=== PATIENT | female | born 1990 | race Caucasian/White ===

== ENCOUNTER 2020-12-13 21:16 | Emergency (ER) | payer OTHER ==
[2020-12-13 21:35] VITALS: BP 111/80; PULSE 85; TEMP 97.9; BMI 29.2
[2020-12-13] MEDS ORDERED: IBUPROFEN 600 MG TABLET (FP) PO ONE ×2 (22:38→22:49)
[2020-12-13] MEDS ORDERED: DEXAMETHASONE LIQUID 0.5 MG/5 ML PO ONE (22:38)
[2020-12-13] MEDS ORDERED: DEXAMETHASONE SOD PHOSPHATE 10 MG/1 ML VIAL ONE (22:41)
== END 2020-12-13 23:09 | disposition home or self-care (01) ==
LOC: JERFT 21:16
DX: J06.9 Acute upper respiratory infection, unspecified (principal); Z11.52 Encounter for screening for COVID-19
CPT/HCPCS: 71045-TC-FY; 99284-25; C9803; U0003; U0005

== ENCOUNTER 2020-12-24 23:31 | Emergency (ER) | payer OTHER ==
[2020-12-25 00:33] VITALS: BP 112/74; PULSE 74; TEMP 97.7; BMI 30.6
[2020-12-25] MEDS ORDERED: ACETAMINOPHEN 325 MG TABLET (FP) PO ONE (02:34)
[2020-12-25] MEDS ORDERED: ACETAMINOPHEN 325 MG TABLET (FP) ONE (02:39)
[2020-12-25 03:09] LABS: BASO % 0.2 % (0-2.0); EOS % 2.3 % (0-4.5); HEMATOCRIT 41.3 % (32.4-45.2); HEMOGLOBIN 14.1 GM/dL (10.7-15.3); LYMPH % 33.5 % (8-40); MCH 29.6 pg (25.7-33.7); MCHC 34.2 g/dl (32.0-36.0); MEAN CELL VOLUME 86.4 fl (80-96); MEAN PLT VOLUME 8.8 fl (7.5-11.1); MONO % 7.9 % (3.8-10.2); NEUT % 56.1 % (42.8-82.8); PLATELET COUNT 259 10^3/uL (134-434); RBC 4.78 M/mm3 (3.60-5.2); RDW 13.2 % (11.6-15.6); WHITE BLOOD COUNT 9.7 K/mm3 (4.0-10.0)
[2020-12-25 03:22] LABS: CHLORIDE 108 mmol/L (98-107); SODIUM 138 mmol/L (136-145)
[2020-12-25 03:24] LABS: CALCIUM 9.1 mg/dL (8.5-10.1)
[2020-12-25 03:25] LABS: ALBUMIN 3.9 g/dl (3.4-5.0); ANION GAP 6 MMOL/L (8-16); CO2 23 mmol/L (21-32); GLUCOSE,RANDOM 91 mg/dL (74-106)
[2020-12-25 03:28] LABS: CREATININE 0.7 mg/dL (0.55-1.3); SGOT/AST 12 U/L (15-37); SGPT/ALT 25 U/L (13-61)
[2020-12-25 03:30] LABS: BILIRUBIN,TOTAL 0.3 mg/dL (0.2-1); TOT PROT 7.5 g/dl (6.4-8.2)
[2020-12-25 03:31] LABS: ALK PHOS 80 U/L (45-117)
== END 2020-12-25 05:03 | disposition home or self-care (01) ==
LOC: JER 23:31
DX: R07.9 Chest pain, unspecified (principal)
CPT/HCPCS: 36415; 71046-TC-FY; 80053; 82550; 84484; 85025; 93005; 93010; 99284-25; C9803; U0003; U0005

== ENCOUNTER 2021-01-01 12:27 | Emergency (ER) | payer OTHER ==
[2021-01-01 12:52] VITALS: BMI 30.9
[2021-01-01] MEDS ORDERED: METOCLOPRAMIDE HCL INJECTION 10 MG/2 ML VIAL IVPB ONE (13:51)
[2021-01-01] MEDS ORDERED: SODIUM CHLORIDE 1,000 ML IV STA (13:51)
[2021-01-01] MEDS ORDERED: ACETAMINOPHEN 1000 MG/100 ML VIAL (NON FORMULARY) IVPB ONE (13:51)
[2021-01-01 14:15] LABS: BASO % 0.3 % (0-2.0); EOS % 1.2 % (0-4.5); HEMATOCRIT 42.4 % (32.4-45.2); HEMOGLOBIN 14.7 GM/dL (10.7-15.3); LYMPH % 24.5 % (8-40); MCH 30.1 pg (25.7-33.7); MCHC 34.6 g/dl (32.0-36.0); MEAN CELL VOLUME 87.1 fl (80-96); MEAN PLT VOLUME 9.2 fl (7.5-11.1); MONO % 7.7 % (3.8-10.2); NEUT % 66.3 % (42.8-82.8); PLATELET COUNT 234 10^3/uL (134-434); RBC 4.86 M/mm3 (3.60-5.2); WHITE BLOOD COUNT 8.1 K/mm3 (4.0-10.0)
[2021-01-01 14:17] LABS: URINE APPEARANCE CLOUDY; URINE BILIRUBIN NEGATIVE (NEGATIVE); URINE COLOR YELLOW; URINE GLUCOSE (UA) NEGATIVE (NEGATIVE); URINE KETONE NEGATIVE (NEGATIVE); URINE LEUK ESTERASE NEGATIVE (NEGATIVE); URINE NITRITE NEGATIVE (NEGATIVE); URINE PROTEIN NEGATIVE (NEGATIVE); URINE UROBILINOGEN 0.2 mg/dL (0.2-1.0)
[2021-01-01 14:19] LABS: HCG,QUALITATIVE URINE Negative
[2021-01-01 14:30] LABS: ALBUMIN 3.9 g/dl (3.4-5.0); BLOOD UREA NITROGEN 12.5 mg/dL (7-18); CALCIUM 8.8 mg/dL (8.5-10.1)
[2021-01-01 14:34] LABS: CREATININE 0.7 mg/dL (0.55-1.3)
[2021-01-01 14:35] LABS: BILIRUBIN,TOTAL 0.3 mg/dL (0.2-1); TOT PROT 7.5 g/dl (6.4-8.2)
[2021-01-01] MEDS ORDERED: METOCLOPRAMIDE HCL INJECTION 10 MG/2 ML VIAL ONE (14:42)
[2021-01-01] MEDS ORDERED: ACETAMINOPHEN INJECTION 100 ML IVPB ONE (14:43)
[2021-01-01 15:34] VITALS: BP 105/72; PULSE 63; TEMP 97.6
== END 2021-01-01 16:18 | disposition home or self-care (01) ==
LOC: JER 12:27
PROC: 3E0333Z Introduction of Anti-inflammatory into Peripheral Vein, Percutaneous Approach (ICD-10-PCS; principal; 2021-01-01)
PROC: 3E033GC Introduction of Other Therapeutic Substance into Peripheral Vein, Percutaneous Approach (ICD-10-PCS; 2021-01-01)
PROC: 3E0337Z Introduction of Electrolytic and Water Balance Substance into Peripheral Vein, Percutaneous Approach (ICD-10-PCS; 2021-01-01)
DX: G44.019 Episodic cluster headache, not intractable (principal)
CPT/HCPCS: 36415; 70450-TC; 80053; 81003; 84703; 85025; 87086; 93880-TC; 99285-25; J0131

== ENCOUNTER 2021-05-09 14:38 | Emergency (ER) | payer OTHER ==
[2021-05-09 14:42] VITALS: BP 115/78; PULSE 92; TEMP 97.7; BMI 31.1
[2021-05-09] MEDS ORDERED: NAPROXEN 500 MG TABLET PO ONE (14:51)
[2021-05-09] MEDS ORDERED: AMOX TR/POT CLAV 875MG/125MG TABLETS (FP) PO ONE (14:51)
[2021-05-09] MEDS ORDERED: NAPROXEN 500 MG TABLET ONE (14:58)
[2021-05-09] MEDS ORDERED: AMOX TR/POT CLAV 875MG/125MG TABLETS (FP) ONE (14:58)
== END 2021-05-09 15:11 | disposition home or self-care (01) ==
LOC: FER 14:38
DX: K04.7 Periapical abscess without sinus (principal); K08.89 Other specified disorders of teeth and supporting structures
CPT/HCPCS: 99283-25

== ENCOUNTER 2021-11-20 23:35 | Emergency (ER) | payer OTHER ==
[2021-11-20 23:42] VITALS: BP 132/88; PULSE 96; TEMP 98.7; BMI 31.1
[2021-11-20] MEDS ORDERED: IBUPROFEN 600 MG TABLET (FP) PO ONE ×2 (23:45→23:46)
== END 2021-11-21 01:18 | disposition home or self-care (01) ==
LOC: FER 23:35
DX: J02.9 Acute pharyngitis, unspecified (principal)
CPT/HCPCS: 87651; 99283-25

== ENCOUNTER 2021-12-05 21:51 | Emergency (ER) | payer OTHER ==
[2021-12-05 22:10] VITALS: BP 116/82; PULSE 88; TEMP 98.3; BMI 35.6
[2021-12-06] MEDS ORDERED: KETOROLAC TROMETHAMINE 30 MG/1 ML VIAL IM ONE
[2021-12-06] MEDS ORDERED: KETOROLAC TROMETHAMINE 30 MG/1 ML VIAL ONE (00:49)
== END 2021-12-06 00:59 | disposition home or self-care (01) ==
LOC: JER 21:51
PROC: 3E023GC Introduction of Other Therapeutic Substance into Muscle, Percutaneous Approach (ICD-10-PCS; principal; 2021-12-05)
DX: R07.9 Chest pain, unspecified (principal)
CPT/HCPCS: 71046-TC-FY; 93005; 93010; 99284-25

== ENCOUNTER 2022-07-07 21:57 | Emergency (ER) | payer OTHER ==
[2022-07-07 22:08] VITALS: BP 120/92; PULSE 92; RESP 20; BMI 35.1
[2022-07-07] MEDS ORDERED: GLUCAGON 1 MG KIT IVPUSH ONE (22:59)
[2022-07-07] MEDS ORDERED: ONDANSETRON 4 MG/2 ML VIAL IVPB ONE (23:00)
[2022-07-07] MEDS ORDERED: SODIUM CHLORIDE 1,000 ML IV ONE (23:00)
[2022-07-07] MEDS ORDERED: ONDANSETRON 4 MG/2 ML VIAL ONE (23:06)
[2022-07-07] MEDS ORDERED: GLUCAGON 1 MG KIT ONE (23:06)
[2022-07-07 23:21] LABS: HEMATOCRIT 41.1 % (32.4-45.2); HEMOGLOBIN 14.2 G/dL (10.7-15.3); MCH 29.6 pg (25.7-33.7); MCHC 34.5 g/dl (32.0-36.0); RBC 4.78 10^6/uL (3.60-5.2); RDW 13.4 % (11.6-15.6); WHITE BLOOD COUNT 10.3 10^3/uL (4.0-10.8)
[2022-07-07 23:33] LABS: ALBUMIN 3.8 g/dl (3.4-5.0); BILIRUBIN,TOTAL 0.8 mg/dl (0.2-1); CALCIUM 9.1 mg/dl (8.5-10); CREATININE 0.9 mg/dl (0.55-1.3); TOT PROT 6.8 g/dl (6.4-8.2)
[2022-07-07 23:34] LABS: PLATELET ESTIMATE ADEQUATE
== END 2022-07-08 02:47 | disposition home or self-care (01) ==
LOC: FER 21:57
PROC: 3E033GC Introduction of Other Therapeutic Substance into Peripheral Vein, Percutaneous Approach (ICD-10-PCS; principal; 2022-07-07)
DX: R13.10 Dysphagia, unspecified (principal)
CPT/HCPCS: 36415; 71250-TC; 80053; 81025; 85027; 99285-25

== ENCOUNTER 2022-11-05 22:36 | Emergency (ER) | payer OTHER ==
[2022-11-05 23:00] VITALS: BP 116/77; PULSE 85; RESP 16; TEMP 98.2; BMI 35.2
[2022-11-05] MEDS ORDERED: KETOROLAC TROMETHAMINE 60 MG/2 ML VIAL IM ONE (23:43)
[2022-11-05] MEDS ORDERED: KETOROLAC TROMETHAMINE 60 MG/2 ML VIAL ONE (23:46)
== END 2022-11-06 00:39 | disposition home or self-care (01) ==
LOC: FER 22:36
PROC: 3E0233Z Introduction of Anti-inflammatory into Muscle, Percutaneous Approach (ICD-10-PCS; principal; 2022-11-05)
DX: M54.42 Lumbago with sciatica, left side (principal)
CPT/HCPCS: 99284-25

== ENCOUNTER 2023-04-26 12:56 | Emergency (ER) | payer OTHER ==
[2023-04-26] MEDS ORDERED: morphine CARPU-JECT 4 MG/1 ML DISP.SYRIN IVPUSH ONE (13:13)
[2023-04-26] MEDS ORDERED: ONDANSETRON 4 MG/2 ML VIAL IVPUSH ONE (13:13)
[2023-04-26] MEDS ORDERED: LACTATED RINGERS SOLUTION 1000 ML INFUS.BAG IV ONE (13:15)
[2023-04-26 13:18] VITALS: BP 133/92; PULSE 80; RESP 18; TEMP 98.4; BMI 34.9
[2023-04-26] MEDS ORDERED: morphine SULFATE 4 MG/ML VIAL ONE (13:18)
[2023-04-26] MEDS ORDERED: ONDANSETRON 4 MG/2 ML VIAL ONE (13:19)
[2023-04-26 13:25] LABS: HCG,QUALITATIVE URINE Negative
[2023-04-26 13:54] LABS: HEMATOCRIT 43.6 % (32.4-45.2); HEMOGLOBIN 14.9 G/dL (10.7-15.3); MCHC 34.2 g/dl (32.0-36.0); MEAN CELL VOLUME 87.8 fl (80-96); MEAN PLT VOLUME 9.5 fl (7.5-11.1); PLATELET COUNT 229.1 10^3/uL (134-434); RBC 4.97 10^6/uL (3.60-5.2); RDW 14.2 % (11.6-15.6); WHITE BLOOD COUNT 8.5 10^3/uL (4.0-10.8)
[2023-04-26 14:05] LABS: ALBUMIN 4.1 g/dl (3.4-5.0); BILIRUBIN,TOTAL 0.3 mg/dl (0.2-1); CALCIUM 9.2 mg/dl (8.5-10.1); CREATININE 0.7 mg/dl (0.6-1.3); POTASSIUM 3.9 mmol/L (3.5-5.1); TOT PROT 6.3 g/dl (6.4-8.2)
[2023-04-26] MEDS ORDERED: KETOROLAC TROMETHAMINE 15 MG/ML VIAL IVPUSH ONE (14:59)
[2023-04-26] MEDS ORDERED: KETOROLAC TROMETHAMINE 15 MG/ML VIAL ONE (15:00)
[2023-04-26 15:16] LABS: PLATELET ESTIMATE ADEQUATE
[2023-04-26 22:20] LABS: LIPASE 167 U/L (73-393)
== END 2023-04-26 16:07 | disposition home or self-care (01) ==
LOC: SUPCPDRO 12:56 → FER 12:56
PROC: 3E0333Z Introduction of Anti-inflammatory into Peripheral Vein, Percutaneous Approach (ICD-10-PCS; principal; 2023-04-26)
PROC: 3E033GC Introduction of Other Therapeutic Substance into Peripheral Vein, Percutaneous Approach (ICD-10-PCS; 2023-04-26)
PROC: 3E033GC Introduction of Other Therapeutic Substance into Peripheral Vein, Percutaneous Approach (ICD-10-PCS; 2023-04-26)
DX: R10.84 Generalized abdominal pain (principal); R11.2 Nausea with vomiting, unspecified; K52.9 Noninfective gastroenteritis and colitis, unspecified; N83.209 Unspecified ovarian cyst, unspecified side; K82.8 Other specified diseases of gallbladder; M54.9 Dorsalgia, unspecified; R19.7 Diarrhea, unspecified
CPT/HCPCS: 36415; 74177-TC; 76830-TC; 80053; 81003; 83690; 84703; 85025; 86140; 87086; 99285-25; Q9967

== ENCOUNTER 2023-09-17 18:23 | Emergency (ER) | payer OTHER ==
[2023-09-17 18:31] VITALS: BP 124/76; PULSE 80; RESP 18; TEMP 98; BMI 35.6
[2023-09-17] MEDS ORDERED: ACETAMINOPHEN 500 MG TABLET (FP) ONE (19:00)
[2023-09-17] MEDS: ACETAMINOPHEN 500 MG TABLET (FP) PO ONE (19:01)
== END 2023-09-17 20:19 | disposition home or self-care (01) ==
LOC: JERFT 18:23
DX: S93.402A Sprain of unspecified ligament of left ankle, initial encounter (principal); X50.1XXA Overexertion from prolonged static or awkward postures, initial encounter
CPT/HCPCS: 73610-TC-LT-FY; 73630-TC-LT; 99283-25

== ENCOUNTER 2023-12-25 19:11 | Emergency (ER) | payer OTHER ==
[2023-12-25 19:44] VITALS: BP 107/85; PULSE 78; RESP 20; TEMP 98.1; BMI 35.6
== END 2023-12-25 19:56 | disposition home or self-care (01) ==
LOC: FER 19:11
DX: S16.1XXA Strain of muscle, fascia and tendon at neck level, initial encounter (principal); S39.012A Strain of muscle, fascia and tendon of lower back, initial encounter; V43.62XA Car passenger injured in collision with other type car in traffic accident, initial encounter
CPT/HCPCS: 99283-25

== ENCOUNTER 2024-02-10 10:06 | Emergency (ER) | payer OTHER ==
[2024-02-10 10:10] VITALS: BP 126/84; PULSE 74; RESP 18; TEMP 98.8; BMI 34.9
[2024-02-10] MEDS ORDERED: IBUPROFEN 600 MG TABLET (FP) PO ONE (10:51)
[2024-02-10] MEDS: IBUPROFEN 600 MG TABLET (FP) PO ONE (10:53)
[2024-02-10] MEDS ORDERED: LIDOCAINE 5% TOPICAL PATCH ONE (12:01)
[2024-02-10] MEDS: LIDOCAINE 5% TOPICAL PATCH TP ONE (12:03)
[2024-02-10] MEDS ORDERED: LIDOCAINE PATCH REMOVAL MC SCH (22:00)
== END 2024-02-10 12:50 | disposition home or self-care (01) ==
LOC: FER 10:06
DX: R07.89 Other chest pain (principal); R06.02 Shortness of breath
CPT/HCPCS: 71046-TC-FY; 93005; 99284-25

== ENCOUNTER 2024-06-07 08:03 | Emergency (ER) | payer OTHER ==
[2024-06-07 08:15] VITALS: BP 122/89; PULSE 92; RESP 18; TEMP 98.5; BMI 37.5
[2024-06-07] MEDS ORDERED: ONDANSETRON *ODT* 4 MG TABLET ONE (08:27)
[2024-06-07] MEDS: ONDANSETRON *ODT* 4 MG TABLET SL ONE (08:31)
[2024-06-07] MEDS ORDERED: MAG HYDROX/AL HYDROX/SIMETH 30 ML UNIT-DOSE CUP ONE (08:53)
[2024-06-07] MEDS ORDERED: FAMOTIDINE 20 MG TABLET ONE (08:53)
[2024-06-07] MEDS ORDERED: ACETAMINOPHEN 500 MG TABLET (FP) ONE (08:53)
[2024-06-07] MEDS: ACETAMINOPHEN 500 MG TABLET (FP) PO ONE (08:59)
[2024-06-07] MEDS: MAG HYDROX/AL HYDROX/SIMETH 30 ML UNIT-DOSE CUP PO ONE (08:59)
[2024-06-07] MEDS: FAMOTIDINE 10 MG TABLET PO ONE (09:00)
== END 2024-06-07 10:08 | disposition home or self-care (01) ==
LOC: FER 08:03
DX: R11.2 Nausea with vomiting, unspecified (principal); R19.7 Diarrhea, unspecified; R10.84 Generalized abdominal pain; Z20.822 Contact with and (suspected) exposure to COVID-19
CPT/HCPCS: 0241U-QW; 99283-25; Q0162